=== PATIENT | female | born 2000 | race Caucasian/White ===

== ENCOUNTER 2024-08-20 21:19 | Emergency (ER) | payer OTHER, SELFPAY ==
[2024-08-20 21:23] VITALS: BP 148/102; PULSE 140; RESP 15; TEMP 37.1; O2SAT 100
--- NOTE | 2024-08-20 21:29 | ECG_ITS ---
Test Date: 2024-08-20 21:33:29 Measurements Intervals [place] Rate: 133 P: 47 MA: 144 QRS: 0 QRSD: 90 T: 31 QT: 332 QTc: 494 Interpretive Statements SINUS TACHYCARDIA MINIMAL Q WAVES- HIGH LATERAL LEADS POSSIBLE ANTERIOR MYOCARDIAL INFARCTION , PROBABLY OLD BORDERLINE ST-T WAVE ABNORMALITY- ANTEROLAT/INF LEADS BASELINE WANDER- II, III, V3 ABNORMAL ECG No previous ECG available for comparison Electronically Signed On 08-21-2024 06:06:13 [employer] by Chris Johnson D.O.
[2024-08-21 02:10] VITALS: BP 150/112; PULSE 114; RESP 16; TEMP 36.6; O2SAT 98
[2024-08-21] MEDS: SODIUM CHLORIDE 0.9% IV 1,000 ML 999 ML IV CONT (02:30)
[2024-08-21 02:39] LABS: Hematocrit 43.8 % (37.0-47.0); Hemoglobin 14.9 g/dL (12.0-15.0); Mean Corpuscular Hemoglobin 28.9 pg (26-34); Mean Corpuscular Volume 84.9 fl (80-100); Mean Platelet Volume 10.5 fl (7.4-10.4); Platelet Count Result 179 k/mm3 (150-375); Red Blood Count 5.16 M/mm3 (4.2-5.4); Red Cell Distribution Width 12.7 % (11.5-14.5); White Blood Count 11.4 K/mm3 (4.5-10.0)
[2024-08-21 02:54] LABS: Alanine Aminotransferase 275 U/L (6-35); Albumin Level 4.7 g/dL (3.5-5.1); Alkaline Phosphatase 190 U/L (38-126); Anion Gap 9 mmol/L (4-12); Aspartate Amino Transferase 219 U/L (14-36); Bilirubin,Total 1.1 mg/dL (0.2-1.3); Blood Urea Nitrogen 5 mg/dL (7-17); Calcium 9.5 mg/dL (8.4-10.2); Carbon Dioxide 23 mmol/L (22-30); Chloride 105 mmol/L (98-107); Estimated CRCL calculation 116 ml/min; Estimated Glomerular Filt Rate > 60; Glucose 110 mg/dL (65-110); Magnesium 2.1 mg/dL (1.6-2.3); Potassium 4.3 mmol/L (3.4-5.0); Sodium 137 mmol/L (137-145)
[2024-08-21 02:58] LABS: SPREG INTERNAL CONTROL Positive; Serum Qual hCG Negative
[2024-08-21 03:15] LABS: Influenza A QL RT-PCR Negative (Negative); Influenza B QL RT-PCR Negative (Negative); SARS-CoV-2 RNA PCR Negative (Negative)
[2024-08-21 03:17] LABS: Band Neutrophils Percent 3 % (0-6); Lymphocytes Absolute Manual 5.24 K/mm3 (1.1-4.5); Monocytes Absolute Manual 0.22 K/mm3 (0.1-0.90); Monocytes Percent Manual 2 % (3-9); Neutrophils Absolute Manual 5.92 K/mm3 (1.7-7.2); Neutrophils Percent Manual 49 % (46-73); Total Cells Counted 100
[2024-08-21 03:19] LABS: Platelet Estimate Adequate (Adequate); Schistocytes None Seen
[2024-08-21 03:20] LABS: Monoscreen Positive (Negative); Negative Monotest Control Negative (Negative); Positive Monotest Control Positive (Positive)
--- NOTE | 2024-08-21 03:30 | ED_ITS ---
HPI - General Adult General Chief complaint: Neck Pain/Injury Stated complaint: sent from for meningitis concern & htn Time Seen by Provider: 08/21/24 02:13 History of Present Illness HPI narrative: Patient is a 23-year-old female who presents to the emergency department this evening due to concern for headache, fevers, congestion, and neck pain for the past month. Patient was seen at an urgent care initially and was told to come to the emergency department for further evaluation due to concern for meningitis. Patient admits that her symptoms started approximately 4 weeks ago with a sore throat and exudates on her throat. Patient presented to an urgent care then but due to long wait times she went home without being seen. Due to symptoms persists patient finally decided to go and today and was sent here. Denies any history of IV drug use, denies any sick contacts at home and denies any additional symptoms or concerns at this time. Related Data Allergies Allergy/AdvReac Type Severity Reaction Status Date / Time No Known Allergies Allergy Mild Verified 08/20/24 21:21 Review of Systems Review of Systems: All systems are reviewed and are negative unless stated otherwise in the HPI. Exam Narrative: General: Alert, awake, afebrile, in no acute distress. HEENT: PERRL, no rhinorrhea, no post nasal drip, oropharynx clear without exudate. Neck: Trachea midline, no JVD, no lymphadenopathy. Cardiovascular: Regular rate and rhythm, no murmurs, rubs or gallops, no peripheral edema. Respiratory: Clear to auscultation bilaterally, no tachypnea, no wheezing, no rhonchi, no rubs, no respiratory distress. Abdomen: Soft, nontender, nondistended, no rebound, no guarding, no peritoneal signs. Musculoskeletal: No joint swelling or deformity, normal muscle tone. Skin: No rashes or petechia, no signs of infection. Psychiatric: Alert and oriented, normal behavior and judgment for situation. Neurological: Alert and oriented to person, place, and time. Follows all commands. No focal deficits, speech is clear and fluent. Course Vital Signs Vital signs: Vital Signs Temperature 98.8 F 08/20/24 21:23 Pulse Rate 140 H 08/20/24 21:23 Respiratory Rate 15 08/20/24 21:23 Blood Pressure 148/102 H 08/20/24 21:23 Pulse Oximetry 100 08/20/24 21:23 Oxygen Delivery Room Air 08/20/24 21:23 Temperature 97.8 F 08/21/24 02:10 Pulse Rate 114 H 08/21/24 02:10 Respiratory Rate 16 08/21/24 02:10 Blood Pressure 150/112 H 08/21/24 02:10 Pulse Oximetry 98 08/21/24 02:10 Oxygen Delivery Room Air 08/20/24 21:23 Medical Decision Making MDM Narrative Medical decision making narrative: The patient was evaluated by myself in the emergency department. History is obtained from patient who is an independent historian and physical exam was performed. External medical records were reviewed at this time. IV was established and pertinent tests were ordered. Patient was administered 1 L IV fluid bolus with normal saline. Laboratory results obtained revealing a white blood cell count of 11.4, transaminitis with an AST of 219 and an ALT of 275, alkaline phosphatase 190. Monospot test was positive. Differential diagnosis considerations include acute viral syndrome, infectious process such as mononucleosis/strep throat, dehydration, electrolyte derangements. Comorbidities impacting this visit include none. I have evaluated and discussed social determinants of health with the patient that could potentially impact subsequent diagnosis and treatment plans. On repeat assessment of the patient, reevaluation revealed that the patient is doing well and is in no acute distress. Patient symptoms have improved since she arrived to our emergency department. Patient states that IV fluid completely resolved her headache. Repeat vital signs were all reviewed and noted to be stable. Differential diagnosis and treatment plan were discussed with the patient at bedside. Patient agrees with discussion and after shared medical decision making agrees with discharge. All questions were answered to the patient's satisfaction. Patient will follow up with her PCP in 3-5 days. Patient was provided with strict return precautions and instructed to return to the emergency department if any new or worsening symptoms develop. The patient was discharged in stable condition. Vital Signs Vital Signs: Vital Signs Temperature 98.8 F 08/20/24 21:23 Pulse Rate 140 H 08/20/24 21:23 Respiratory Rate 15 08/20/24 21:23 Blood Pressure 148/102 H 08/20/24 21:23 Pulse Oximetry 100 08/20/24 21:23 Oxygen Delivery Room Air 08/20/24 21:23 Temperature 97.8 F 08/21/24 02:10 Pulse Rate 114 H 08/21/24 02:10 Respiratory Rate 16 08/21/24 02:10 Blood Pressure 150/112 H 08/21/24 02:10 Pulse Oximetry 98 08/21/24 02:10 Oxygen Delivery Room Air 08/20/24 21:23 Lab Data 08/21/24 02:30 08/21/24 02:30 Labs: Lab Results 08/21/24 Range/Units 02:30 WBC 11.4 H (4.5-10.0) K/mm3 RBC 5.16 (4.2-5.4) M/mm3 Hgb 14.9 (12.0-15.0) g/dL Hct 43.8 (37.0-47.0) % MCV 84.9 (80-100) fl MCH 28.9 (26-34) pg MCHC 34.0 (32-36) g/dl RDW 12.7 (11.5-14.5) % Plt Count 179 (150-375) k/mm3 MPV 10.5 H (7.4-10.4) fl Immature Gran % (Auto) Not Reportable Neut % (Auto) Not Reportable Lymph % (Auto) Not Reportable [place] % (Auto) Not Reportable Eos % (Auto) Not Reportable Baso % (Auto) Not Reportable Lymph # (Auto) Not Reportable [place] # (Auto) Not Reportable Eos # (Auto) Not Reportable Baso # (Auto) Not Reportable Abs Immat Gran (auto) Not Reportable Absolute Neuts (auto) Not Reportable Absolute Nucleated RBC Not Reportable Total Counted 100 Neutrophils % (Manual) 49 (46-73) % Band Neutrophils % 3 (0-6) % Lymphocytes % (Manual) 46.0 H (18-44) % Monocytes % (Manual) 2 L (3-9) % Nucleated RBC % Not Reportable Abs Neuts (Manual) 5.92 (1.7-7.2) K/mm3 Abs Lymphs (Manual) 5.24 H (1.1-4.5) K/mm3 Abs Monocytes (Manual) 0.22 (0.1-0.90) K/mm3 Platelet Estimate Adequate (Adequate) Schistocytes None seen Sodium 137 (137-145) mmol/L Potassium 4.3 (3.4-5.0) mmol/L Chloride 105 (98-107) mmol/L Carbon Dioxide 23 (22-30) mmol/L Anion Gap 9 (4-12) mmol/L BUN 5 L (7-17) mg/dL Creatinine 0.80 (0.7-1.0) mg/dL Estim Creat Clear Calc 116 ml/min Estimated GFR > 60 (59 - ) Glucose 110 (65-110) mg/dL Calcium 9.5 (8.4-10.2) mg/dL Magnesium 2.1 (1.6-2.3) mg/dL Total Bilirubin 1.1 (0.2-1.3) mg/dL AST 219 H (14-36) U/L ALT 275 H (6-35) U/L Alkaline Phosphatase 190 H (38-126) U/L Total Protein 9.0 H (6.3-8.2) g/dL Albumin 4.7 (3.5-5.1) g/dL Serum HCG, Qual Negative Monoscreen Positive A (Negative) Influenza A (RT-PCR) Negative (Negative) Influenza B (RT-PCR) Negative (Negative) SARS-CoV-2 RNA (RT-PCR) Negative (Negative) Discharge Plan Discharge Clinical Impression: Infectious mononucleosis Patient Disposition: Home, Self-Care Condition: Improved Instructions: Antibiotic Form, Mononucleosis (ED) Additional Instructions: Please follow-up with your family doctor within the next 3-5 days. Return to the emergency department if any new or worsening symptoms develop. Your liver enzymes were elevated today which is likely secondary to mononucleosis, this will need to be rechecked by your primary care physician to trend these levels until they are back to normal range. Use ibuprofen and Tylenol for your symptoms as needed. Follow-up/Referrals: Zeeshan,Vasu Moody MD [Primary Care Provider] - 3 Days Time of Disposition: 03:34
== END 2024-08-21 04:00 | disposition home or self-care (01) ==
PROVIDERS: Emergency Provider Emergency Medicine; PCP Pediatrics
DX: B27.90 Infectious mononucleosis, unspecified without complication (principal); Z20.822 Contact with and (suspected) exposure to COVID-19
CPT/HCPCS: 36415; 80053; 83735; 84703; 85025; 86308; 87636; 93005; 96360; 99283; J7030